=== PATIENT | female | born 1980 | race Caucasian/White ===

== ENCOUNTER 2018-01-14 14:00 | Emergency (ER) | END 2018-01-14 15:33 | disposition home or self-care (01) ==

== ENCOUNTER 2018-07-18 20:15 | Inpatient (IN) | payer MEDICAID ==
[~2018-07-18] VITALS: Ht 152.4 cm; Wt 77.7 kg
[~2018-07-18 20:15] MED LIST: ALBU8.5H8 INH; CEPH-443 PO; IRON; PREN-39 PO; PRENATAL VITAMINS
[2018-07-18 20:20] VITALS: BP 101/61; PULSE 78; RESP 18
[2018-07-18] MEDS ORDERED: METF-480 PO (20:43)
[2018-07-18] MEDS ORDERED: LACTATED RINGER'S 1,000 ML IV PRN (22:10)
[2018-07-18] MEDS ORDERED: OXYTOCIN 30 UNITS/LR 500 ML IV SCH ×2 (22:30)
[2018-07-18] MEDS ORDERED: LIDOCAINE 1% (MPF) 30 ML INJ INJ PRN (22:30)
[2018-07-18] MEDS ORDERED: CARBOPROST 250 MCG INJ IM PRN (22:30)
[2018-07-18] MEDS ORDERED: BUTORPHANOL 2 MG INJ IV PRN (22:30)
[2018-07-18] MEDS ORDERED: METHYLERGONOVINE 0.2 MG INJ IM PRN (22:30)
[2018-07-18] MEDS ORDERED: AMPICILLIN 2 GM/NS (PMX) 100 ML IV ONE (22:30)
[2018-07-18] MEDS ORDERED: OXYTOCIN 30 UNITS/LR 500 ML IV PRN (22:30)
[2018-07-18] MEDS ORDERED: MISOPROSTOL 200 MCG TAB PR PRN (22:30)
[2018-07-18] MEDS ORDERED: IBUPROFEN 600 MG TAB PO PRN (22:30)
[2018-07-18] MEDS: LACTATED RINGER'S 1,000 ML IV SCH (23:19)
--- NOTE | 2018-07-18 23:35 | TRIAGE ---
OB Triage Datetime Report Generated by CPN: 07/18/2018 23:34 Datetime: 07/18/2018 22:49 Labor Evaluation Frequency: 2-6 Monitor Mode: External Duration (sec)2399: 60-120 Quality: Moderate Pattern: Normal: <= 5 Contractions in 10 Minutes Resting Tone Blanket: Relaxed Datetime: 07/18/2018 22:03 Vaginal Exam Dilatation (cms): 3.0 Effacement (%): 50 Station: -3 Membrane Status: Ruptured Datetime: 07/18/2018 22:00 Labor Evaluation Frequency: 1-8 Monitor Mode: External Duration (sec)2399: 50-120 Quality: Moderate Pattern: Normal: <= 5 Contractions in 10 Minutes Resting Tone Blanket: Relaxed Datetime: 07/18/2018 21:54 Monitor Mode: External Monitor Mode: External US Datetime: 07/18/2018 21:00 Labor Evaluation Frequency: 2-6 Monitor Mode: External Duration (sec)2399: 40-90 Quality: Moderate Pattern: Normal: <= 5 Contractions in 10 Minutes Resting Tone Blanket: Relaxed Heart Rate FHR Baseline Rate: 130 Monitor Mode: External US Variability: Moderate 6-25 bpm Accelerations: 15X15 Decelerations: None Category: Category I Datetime: 07/18/2018 20:20 Vaginal Exam Dilatation (cms): 3.0 Effacement (%): 50 Station: -3 Nitrazine: Negative Datetime: 07/18/2018 20:08 Time of Arrival: 07/18/2018 19:55 Arrived By: Wheelchair Arrived From: Home Chief Complaint: UC'S SINCE 1700 _ LEAKING SINCE 1600 Movement: Present Contractions: Regular Time Contractions Began: 07/18/2018 17:00 Contractions: 8MIN-PER PT Rupture of Membranes: Unsure Vaginal Bleeding: None Vaginal Discharge: Present Recent Sexual Intercouse: Denies Abdominal Trauma: Not Applicable Patient Complaints: Contractions Time Provider Notified: 07/18/2018 20:37 Provider Notified: EFRAÍN Initial Plan: CEFM, NITRAZINE, SVE, EFW, ROM+ Datetime: 07/18/2018 20:06 Stage of : OB Triage Assessment Type: Triage Maternal Assessment Level of Consciousness: Fully Conscious DTR's/Clonus: DTRs 2+; No Clonus Headache: Denies Blurred Vision: No Respiratory Effort: Unlabored; Regular Rhythm; Equal Expansion Breath Sounds, Left: Clear and Equal Breath Sounds, Right: Clear and Equal Nausea/Vomiting: Denies RUQ Epigastric Pain: Denies Lower Extremities Edema: Bilateral Lower Extremities Degree: 1+ Upper Extremities Edema: None Degree: None Facial Edema: None Temperature Route: Oral Fall Risk Assessment History of Falling: (0) No Secondary Diagnosis: (0) No Ambulatory Aid: (0) Bedrest/Nurse Assist IV Therapy: (0) No Gait: (0) Normal/Bedrest/Immobile Mental Status: (0) Oriented to Own Ability Pain Assessment Pain Scale: 7 Pain Presence: Intermittent Pain Type: Contraction Pain Location: Abdomen Pain Goal: 2 Pain Relief Measures: Comfort Measures
[2018-07-19] MEDS: AMPICILLIN 1 GM/NS (PMX) 50 ML IV SCH ×5 (03:01→19:42)
[2018-07-19] MEDS: LACTATED RINGER'S 1,000 ML IV SCH ×2 (08:38→18:27)
[2018-07-19] MEDS ORDERED: MINERAL OIL LIGHT 10 ML VIAL TOP ONE (13:30)
--- NOTE | 2018-07-19 13:38 | PREAC ---
Date/Time of Note Date/Time of Note DATE: 07/19/18 TIME: 13:37 Anesthesia Eval and Record Evaluation Time Pre-Procedure Interview DATE: 07/19/18 TIME: 13:37 Age 37 Sex female NPO: 8 hrs Preoperative diagnosis iup at 37 weeks Planned procedure labor epidural Past Medical History Past Medical History: None Surgery & Anesthesia Issues No known issue Meds Anticoagulation: No Beta Jose Miguel within 24 hr: No Reason Beta Jose Miguel not given: Pt. not on B-Jose Miguel Active Scripts Albuterol Sulfate* (Proair HFA*) 8.5 Gm Hfa.aer.ad, 2 PUFF INH Q4H PRN for WHEEZING AND SOB, #1 INHALER Prov:ESTHER HOANG MD 01/14/18 Cephalexin* (Keflex*) 500 Mg Capsule, 500 MG PO QID for 7 Days, #21 CAP Prov:ESTHER HOANG MD 01/14/18 Reported Medications Metformin* (Glucophage*) 850 Mg Tablet, 850 MG PO WITH MEALS, #90 TAB 07/18/18 Vits W-Ca,Fe,Fa(<1MG) ( Vitamins) 1 Tab Tablet, 1 TAB PO DAILY 02/09/13 [Iron] No Conflict Check 07/19/12 [ Vitamins] No Conflict Check 07/19/12 Current Medications Lactated Ringer's 1,000 ml @ 125 mls/hr Q8H IV Last administered on 07/19/18at 08:38; Admin Dose 125 MLS/HR; Start 07/18/18 at 22:10 Ampicillin 50 ml @ 100 mls/hr Q4H IV Last administered on 07/19/18at 12:41; Admin Dose 100 MLS/HR; Start 07/19/18 at 02:30 Butorphanol Tartrate (Stadol) 2 mg Q2H PRN IV .PAIN; Start 07/18/18 at 22:30 Lidocaine (Xylocaine 1% (Mpf)) 30 ml ONCE PRN INJ .EPISIOTOMY; Start 07/18/18 at 22:30 Oxytocin/Lactated Ringer's 500 ml @ 500 mls/hr ONCE POST IV ; Start at 22:30 Oxytocin/Lactated Ringer's 500 ml @ 125 mls/hr POST IV ; Start 07/18/18 at 22:30 Ibuprofen (Motrin) 600 mg ONCE PRN PO .PAIN 1-5; Start 07/18/18 at 22:30 Lactated Ringer's 1,000 ml @ 2,000 mls/hr Q30M PRN IV .ANESTHESIA; Start 07/18/18 at 22:10 Oxytocin/Lactated Ringer's 500 ml @ 0 mls/hr ONCE PRN IV .VAGINAL BLEEDING; Start 07/18/18 at 22:30 Methylergonovine Maleate (Methergine) 0.2 mg ONCE PRN IM .VAGINAL BLEEDING; Start 07/18/18 at 22:30 Carboprost Tromethamine (Hemabate) 250 mcg ONCE PRN IM .VAGINAL BLEEDING; Start 07/18/18 at 22:30 Misoprostol (Cytotec) 1,000 mcg ONCE PRN MA .VAGINAL BLEEDING; Start 07/18/18 at 22:30 Meds reviewed: Yes Allergies Coded Allergies: No Known Drug Allergy (Unverified Allergy, Unknown, 08/20/12) Allergies Reviewed: Yes Labs/Studies Labs Reviewed: Reviewed by anesthesiologist Result Diagram: 07/19/18 0017 Laboratory Tests 07/19/18 00:17 Blood Bank Test 07/19/18 00:17 Antibody Screen NEGATIVE Blood Type O POSITIVE Rh Immune Globulin Candidate NO test: Positive Pre-procedure Exam Last vitals Vital Signs Date Temp Pulse Resp B/P (MAP) Pulse Ox O2 O2 Flow FiO2 Time Delivery Rate 07/18/18 97.4 78 18 101/61 Room Air 20:20 (74) Airway: Adequate mouth opening, Adequate thyromental dist Mallampati: Mallampati II Teeth: Normal Lung: Normal Heart: Normal ASA Physical Status ASA physical status: 2 Emergency: None Planned Anesthetic Neuraxial: Epidural Planned Pain Management Parenteral pain med Pre-operative Attestations Prior to commencing anesthesia and surgery, the patient was re-evaluated, there was verification of: *The patient's identity *The results of appropriate recent lab work and preoperative vital signs *The above evaluation not changing prior to induction *Anesthetic plan, risk benefits, alternative and complications discussed with patient/family; questions answered; patient/family understands, accepts and wishes to proceed. JUAN RANDOLPH Jul 19, 2018 13:38
[2018-07-19] MEDS ORDERED: FENTAnyl 2MCG/ML-ROPIV 0.2% 100 ML ONE (13:41)
[2018-07-19] MEDS ORDERED: FENTAnyl 2MCG/ML-ROPIV 0.2% 100 ML BAG EPI SCH (14:00)
[2018-07-19] MEDS ORDERED: DIPHENHYDRAMINE 50 MG INJ IV PRN (14:00)
[2018-07-19] MEDS ORDERED: NALOXONE (0.4 MG/ML) INJ IV PRN (14:00)
[2018-07-19] MEDS ORDERED: ONDANSETRON 4 MG INJ IV PRN (14:00)
--- NOTE | 2018-07-19 15:10 | PAC ---
Date/Time of Note Date/Time of Note DATE: 07/19/18 TIME: 15:09 Post-Anesthesia Notes Post-Anesthesia Note Last documented vital signs Vital Signs Date Temp Pulse Resp B/P (MAP) Pulse Ox O2 O2 Flow FiO2 Time Delivery Rate 07/19/18 97.4 78 18 101/61 Room Air 15:10 (74) Activity: WNL Respiratory function: WNL Cardiovascular function: WNL Mental status: Baseline Pain reasonably controlled: Yes Hydration appropriate: Yes Nausea/Vomiting absent: Yes JUAN RANDOLPH Jul 19, 2018 15:10
--- NOTE | 2018-07-19 22:04 | HP ---
Date/Time of Note Date/Time of Note DATE: 07/19/18 TIME: 22:00 OB - History Hx of Present Free Text/Dictation 37-year-old female 9 para 6 AB 2 at 37+ weeks gestation complaining of spontaneous rupture of membrane at 1630 07/18/2018 Chief Complaint: Spontaneous rupture of membrane Last Menstrual Period: October 17, 2017 Estimated Due Date: Aug 04, 2018 : 9 Para: 6 Spontaneous : 2 Care: Good Care Ultrasounds: Normal mid trimester US Obstetrical Complications: Gestational Diabetes, Other (Advanced maternal age) Past Family/Social History * Past Medical, Surgical, Family and Obstetric Histories reviewed from chart. Blood Type: O+ Rubella: immune RPR/VDRL: Negative GBS Status: Negative HBsAG: Negative OB Admission Exam Vital Signs Vital Signs Vital Signs Date Temp Pulse Resp B/P (MAP) Pulse Ox O2 O2 Flow FiO2 Time Delivery Rate 07/18/18 97.4 78 18 101/61 Room Air 20:20 (74) Physical Exam HEENT: WNL Heart: Rhythm Normal Lungs: Clear, Equal Abdomen: WNL Extremities: Normal Reflexes: Normal Cervical Dilatation: 3cm Effacement: 50% Station: -3 Membranes: Ruptured Amniotic Fluid: Clear Heart Rate: 140's Accelerations: Accelerations Present Decelerations: No Decelerations Varibility: Marked Contractions on Admission: 6-10 Minutes Apart Date/Time Contractions Began: 07/18/2018 at 1630 p.m. Frequency of Contractions: Every 5-10 minutes Duration: Over 1 minute Intensity: Mild Last 72 hourBlood Glucose Bedside Glucose - 72 Hours Test 07/18/18 23:13 07/19/18 03:06 07/19/18 07:11 07/19/18 12:10 Bedside 97 79 79 68 Glucose mg/dL (70-220) mg/dL (70-220) mg/dL (70-220) mg/dL (70-220) L Test 07/19/18 14:35 07/19/18 18:51 Bedside 113 64 Glucose mg/dL (70-220) mg/dL (70-220) L Last 72 hours Lab Results CBC & BMP 07/19/18 00:17 OB Assessment/Plan Reason for admission: rupture of membranes Other Assessment: Class A2 diabetes 37+ weeks gestation Other plan: Proceed with a spontaneous labor JAMIL MI MD Jul 19, 2018 22:04
[2018-07-19] MEDS ORDERED: KETOROLAC 30 MG INJ IV STA (22:07)
--- NOTE | 2018-07-19 22:07 | LDN ---
Date/Time of Note Date/Time of Note DATE: 07/19/18 TIME: 22:05 Delivery Summary Vacuum extraction of a viable infant over intact perineum Vacuum extraction was performed because of a persistent bradycardic Weeks of Gestation 37+ weeks Assisted Vaginal Delivery: Vacuum (Vacuum extraction was performed because of persistent bradycardia) Placenta Delivered: Spontaneously, Intact & Complete Meconium: none Episiotomy: No Perineal laceration: 0 Anesthesia type: Epidural Estimated blood loss: 200 Sponge & Needle done & correct: Yes All needle counts correct: Yes Any foreign bodies felt in the: No Delivery Information Sex Infant Sex: male Apgars 1 Minute: 8 5 Minute: 9 Suctioning Nose & mouth suctioned at melissa: Yes Delee suction performed: No Umbilical Cord Umbilical cord with: 3 Vessels Cord presentations: nuchal cord Nuchal cord present X: 1 Cord Blood was obtained: Yes Mother & Baby Disposition Disposition Mom & Baby to Maternity; Good: Yes (Mother and baby were recovered in good condition) Mom transferred to: Other (Maternity) Baby to NICU: No JAMIL MI MD Jul 19, 2018 22:07
[2018-07-20] MEDS: LACTATED RINGER'S 1,000 ML IV SCH (00:40)
[2018-07-20] MEDS: AMPICILLIN 1 GM/NS (PMX) 50 ML IV SCH (00:40)
[2018-07-20] MEDS: LACTATED RINGER'S 1,000 ML IV* SCH ×2 (02:17→10:17)
[2018-07-20] MEDS ORDERED: CARBOPROST 250 MCG INJ IM PRN (02:30)
[2018-07-20] MEDS ORDERED: METHYLERGONOVINE 0.2 MG INJ IM PRN (02:30)
[2018-07-20] MEDS ORDERED: BENZOCAINE 20% 56 ML SPRAY TOP PRN (02:30)
[2018-07-20] MEDS ORDERED: MISOPROSTOL 200 MCG TAB PR PRN (02:30)
[2018-07-20] MEDS ORDERED: LANOLIN HPA 1 PKT TOP PRN (02:30)
[2018-07-20] MEDS ORDERED: WITCH HAZEL/GLYCERIN PAD PR PRN (02:30)
[2018-07-20] MEDS ORDERED: DIBUCAINE 1% 30 GM OINT TOP PRN (02:30)
[2018-07-20] MEDS ORDERED: HYDROCODONE/APAP (5/325) TAB PO PRN ×2 (02:30)
[2018-07-20] MEDS ORDERED: ALBUTEROL HFA 8 GM INHALER INH PRN (02:30)
[2018-07-20] MEDS ORDERED: ZOLPIDEM 5 MG TAB PO PRN (02:30)
[2018-07-20] MEDS ORDERED: OXYTOCIN 30 UNITS/LR 500 ML IV PRN (02:30)
[2018-07-20 03:11] VITALS: BP 98/55; PULSE 59; RESP 18
[2018-07-20] MEDS: CEPHALEXIN 500 MG CAP PO SCH ×4 (05:37→23:43)
[2018-07-20] MEDS: IBUPROFEN 600 MG TAB PO SCH ×4 (05:38→23:44)
[2018-07-20] MEDS: ACCU-CHEK XX SCH ×4 (05:40→20:05)
[2018-07-20 08:00] VITALS: BP 122/70; PULSE 82; RESP 18
[2018-07-20] MEDS: MAGNESIUM HYDROXIDE 30ML CUP PO SCH ×2 (09:09→20:59)
[2018-07-20] MEDS: SENNA/DOCUSATE NA (8.6MG/50MG) TAB PO SCH ×2 (09:10→21:00)
[2018-07-20] MEDS: metFORMIN (XR) 500 MG TAB PO SCH ×2 (10:00→21:19)
--- NOTE | 2018-07-20 13:19 | DS ---
Date/Time of Note Date/Time of Note home today or next day DATE: 07/20/18 TIME: 13:14 Obstetrical Discharge Record Final Diagnosis Final Diagnosis: Term delivered Other Final Diagnosis Status post vaginal delivery Vaginal Delivery Obstetrical Delivery: Spontaneous Complications Gestational Diabetes Condition on Discharge Physical Assessment Last Vitals: See nurse's notes Voiding: Yes Bowel Movement: Yes Breast: Soft, non-tender, Filling Fundus: Firm Abdomen and Incision: Abdomen is soft present bowel sounds Fundus is firm at the U Episiotomy: Perineum is clean Calf Tenderness: No Patient Condition: Good JAMIL MI MD Jul 20, 2018 13:19
[2018-07-20 15:00] VITALS: BP 94/51; PULSE 69; RESP 17
--- NOTE | 2018-07-20 15:02 | PD.PPDC ---
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 Provider Information Physician Information 37-year-old female had vaginal delivery Diagnosis [id number] Final Diagnosis: [id number] Status post vaginal delivery Condition [id number] Patient Condition: Sxuro6n Good Diet [id number] Diet: Qmawr4i Special Diet Special Diet: 2000 calorie ADA Activity/Restrictions [id number] Activity: [id number] Normal Activity May Shower [id number] Restrictions: Kenpa0t Nothing in the Vagina [id number] Return to Work or School: [id number] Sep 11, 2018 Follow-up Follow-up with Physician: 2, 4, Week/Weeks Return to clinic for [id number] OB Instructions: Esumh6l Breast Tenderness Depression Comment: Pelvic rest for 6 weeks JAMIL MI MD Jul 20, 2018 15:02
[2018-07-20] MEDS ORDERED: METF500T3 PO (15:06)
[2018-07-20] MEDS ORDERED: IBUP-1542 PO (15:06)
[2018-07-20 20:05] VITALS: BP 93/51; PULSE 62; RESP 18
[2018-07-21 03:28] VITALS: BP 90/53; PULSE 69; RESP 17
[2018-07-21] MEDS: CEPHALEXIN 500 MG CAP PO SCH ×2 (05:25→11:49)
[2018-07-21] MEDS: IBUPROFEN 600 MG TAB PO SCH ×2 (05:25→11:49)
[2018-07-21 08:00] VITALS: BP 90/53; PULSE 59; RESP 18
[2018-07-21] MEDS: ACCU-CHEK XX SCH ×3 (08:12→14:38)
[2018-07-21] MEDS ORDERED: VARICELLA VACCINE LIVE/PF 1,350 UNIT/0.5 ML ML SC* ONE (09:00)
[2018-07-21] MEDS ORDERED: DIPHTH/TET/ACEL PERTUSS (ADULT) 0.5 ML VIAL IM* ONE (09:00)
[2018-07-21] MEDS ORDERED: MEASLES,MUMPS,RUBELLA VACCINE INJ SC* ONE (09:00)
[2018-07-21] MEDS: metFORMIN (XR) 500 MG TAB PO SCH (09:30)
[2018-07-21] MEDS: SENNA/DOCUSATE NA (8.6MG/50MG) TAB PO SCH (09:30)
[2018-07-21] MEDS: MAGNESIUM HYDROXIDE 30ML CUP PO SCH (09:30)
[2018-07-21 16:15] VITALS: BP 105/63; PULSE 63; RESP 18
== END 2018-07-21 17:52 | disposition home or self-care (01) | DRG 807 ==
LOC: OBT 20:15 → L-D 20:16 → OBT 22:09 → L-D 22:58 → PP1 07-20 13:54
PROVIDERS: ADMIT Obstetrics & Gynecology; ATTEND Obstetrics & Gynecology
PROC: 10D07Z6 Extraction of Products of Conception, Vacuum, Via Natural or Artificial Opening (ICD-10-PCS; principal; 2018-07-19)
DX: O24.425 Gestational diabetes mellitus in childbirth, controlled by oral hypoglycemic drugs (principal); Z37.0 Single live birth; O69.81X0 Labor and delivery complicated by cord around neck, without compression, not applicable or unspecified; O76 Abnormality in fetal heart rate and rhythm complicating labor and delivery; Z3A.37 37 weeks gestation of pregnancy
CPT/HCPCS: 62319; 76815; 82962; 84112; 85025; 85610; 85730; 86592; 86850; 86900; 86901; 87340; 99464; G0463; J0290; J1885; J2590; J3010; J7120